=== PATIENT | male | born 1995 | race Two or more races ===

== ENCOUNTER 2023-09-03 13:41 | Outpatient (CLI) | payer MEDICAID ==
[~2023-09-03 13:41] MED LIST: GADOTERATE MEGLUMINE 7.5 MMOL/15 ML VIAL IV ONE
[2023-09-04] MEDS ORDERED: GADOTERATE MEGLUMINE 7.5 MMOL/15 ML VIAL IV ONE (09:14)
== END 2023-09-03 23:59 | disposition home or self-care (01) ==
LOC: MRI 13:41
PROVIDERS: ATTEND Optometrist
DX: H50.00 Unspecified esotropia (principal); H05.332 Deformity of left orbit due to trauma or surgery
CPT/HCPCS: 70543; 70553; A9575

== ENCOUNTER 2023-10-24 08:17 | Outpatient (CLI) | payer MEDICAID | END 2023-10-24 23:59 | disposition home or self-care (01) | LOC: MRI 08:17 | PROVIDERS: ATTEND Optometrist | DX: H50.011 Monocular esotropia, right eye (principal) | CPT/HCPCS: 70544 ==